=== PATIENT | female | born 1995 | race Caucasian/White ===

== ENCOUNTER 2018-07-22 22:47 | Inpatient (IN) ==
[2018-07-22] MEDS ORDERED: BUTORPHANOL 2 MG/ML VIAL IV PRN (23:03)
[2018-07-22] MEDS ORDERED: MEPERIDINE 50 MG/1 ML VIAL IV PRN (23:03)
[2018-07-22 23:24] LABS: Basophils % 0.2 % (0.0-0.8); Eosinophils # 0.1 10*3/uL (0.0-0.87); Eosinophils % 0.8 % (0.00-10.9); Hematocrit 29.4 VOL% (35.7-47.0); Hemoglobin 8.7 GM/DL (12.0-16.0); Immature Granulocytes % 1.9 %; Immature Granulocytes Absolute 0.23 #; Lymphocytes # 2.5 10*3/uL (1.4-4.0); Lymphocytes % 20.7 % (21.3-54.2); Mean Corpuscular HGB Conc 29.6 GM/DL (32-36); Mean Corpuscular Hemoglobin 23 PG (27-34); Mean Platelet Volume 9.9 FL (9.6-12.0); Monocytes # 0.6 10*3/uL (0.11-0.8); Monocytes % 5.2 % (1.7-12.7); NRBC # 0.02 10*3/uL; Neutrophils # 8.7 10*3/uL (1.4-7.4); Neutrophils % 71.2 % (38.7-73.9); Platelet Count 334 T/CUMM (130-400); Red Blood Count 3.77 MC/CUMM (3.8-5.5); Red Cell Distribution Width 18.6 % (9.3-17.3); White Blood Count 12.3 T/CUMM (4-12)
[2018-07-22] MEDS ORDERED: LACTATED RINGERS 1,000 ML IV SCH (23:30)
[2018-07-22] MEDS ORDERED: ZALEPLON 5 MG CAPSULE PO ONE (23:39)
[2018-07-22 23:46] LABS: Alanine Aminotransferase 13 U/L (13-56); Albumin 2.6 G/DL (3.4-5.0); Alkaline Phosphatase 193 U/L (45-117); Aspartate Amino Transferase 9 U/L (0-37); Bilirubin,Total < 0.39 MG/DL (0.2-1.0); Blood Urea Nitrogen 11 MG/DL (7-18); Calcium 8.8 MG/DL (8.5-10.1); Glucose 114 MG/DL (74-106); Osmolality,Calculated 272.8 MOS/KG (273-304); Potassium 3.6 MMOL/L (3.5-5.1); Sodium 137 MMOL/L (136-145); Total Protein 7.2 G/DL (6.4-8.3)
[2018-07-23] MEDS: ONDANSETRON 4 MG/2 ML VIAL IV PRN (04:25)
[2018-07-23] MEDS ORDERED: FAMOTIDINE 20 MG/2 ML VIAL IV ONE (04:51)
[2018-07-23] MEDS ORDERED: diphenhydrAMINE 50 MG/1 ML VIAL IV PRN ×2 (04:51)
[2018-07-23] MEDS ORDERED: CITRIC ACID/SODIUM CITRATE 30 ML UDCUP PO ONE (04:51)
[2018-07-23] MEDS ORDERED: hydrOXYzine HCL 25 MG/1 ML VIAL IM PRN (04:51)
[2018-07-23] MEDS ORDERED: ePHEDrine 50 MG/ML AMP IV PRN (04:51)
[2018-07-23] MEDS ORDERED: LACTATED RINGERS 1,000 ML IV ONE (04:51)
[2018-07-23] MEDS ORDERED: PROMETHAZINE 25 MG/1 ML VIAL IM ONE (04:51)
[2018-07-23] MEDS ORDERED: NALOXONE 0.4 MG/ML VIAL IV PRN (04:51)
[2018-07-23] MEDS ORDERED: fentaNYL 2 MCG/ROPIV 0.2% EPID 100 ML EPIDURAL SCH (05:00)
[2018-07-23] MEDS ORDERED: OXYTOCIN/LR 20 UNIT/1,000 ML BAG IV ONE ×3 (06:06→06:36)
[2018-07-23] MEDS ORDERED: METHYLERGONOVINE 0.2 MG/1 ML AMP ONE (06:06)
[2018-07-23] MEDS ORDERED: miSOPROStol 200 MCG TABLET ONE (06:06)
[2018-07-23] MEDS ORDERED: DIPH/TET/ACEL PERT BOOSTER VACCINE 0.5 ML VIAL IM ONE (06:36)
[2018-07-23] MEDS ORDERED: oxyCODONE/ACETAMINOPHEN 5-325 MG TABLET PO PRN (06:36)
[2018-07-23] MEDS ORDERED: LANOLIN 50% CREAM 0.3 OZ TUBE TOP PRN (06:36)
[2018-07-23] MEDS ORDERED: BENZOCAINE 20%/MENTHOL 0.5% SPRAY 56 GM CAN TOP PRN (06:36)
[2018-07-23] MEDS ORDERED: HYDROCORTISONE 2.5% RECTAL CREAM 30 GM TUBE TOP PRN (06:36)
[2018-07-23] MEDS ORDERED: MEASLES/MUMPS/RUBELLA VACCINE 0.5 ML VIAL SUBCUT ONE (06:36)
[2018-07-23] MEDS ORDERED: ACETAMINOPHEN 325 MG TABLET PO PRN (06:36)
[2018-07-23] MEDS ORDERED: WITCH HAZEL PADS 100/JAR TOP PRN (06:36)
[2018-07-23] MEDS ORDERED: RHO(D) IMMUNE GLOBULIN 300 MCG SYRINGE IM ONE (06:36)
[2018-07-23] MEDS ORDERED: ONDANSETRON 4 MG/2 ML VIAL IV PRN (06:36)
[2018-07-23] MEDS ORDERED: BISACODYL 10 MG SUPP RECTAL PRN (06:36)
[2018-07-23] MEDS ORDERED: ONDANSETRON 4 MG/2 ML VIAL IV ONE (07:23)
[2018-07-23] MEDS ORDERED: OXYTOCIN/LR 20 UNIT/1,000 ML BAG IV SCH (08:00)
[2018-07-23 11:44] LABS: Barbiturates Screen,Urine Negative (Negative); Benzodiazepines Screen,Urine Negative (Negative); Cannabinoid Screen,Urine Positive (Negative); Opiate Screen,Urine Negative (Negative); Phencyclidine Screen,Urine Negative (Negative)
[2018-07-23] MEDS: DOCUSATE SODIUM 100 MG CAPSULE PO SCH ×2 (17:14→21:56)
[2018-07-23 19:57] LABS: Hematocrit 24.6 VOL% (35.7-47.0); Hemoglobin 7.4 GM/DL (12.0-16.0)
[2018-07-23] MEDS ORDERED: MAGNESIUM SULF RIDER 100 ML IV ONE (20:38)
[2018-07-23] MEDS: LACTATED RINGERS 1,000 ML IV SCH (21:05)
[2018-07-23] MEDS ORDERED: LORazepam 1 MG TABLET PO PRN (21:38)
[2018-07-23] MEDS ORDERED: hydrALAZINE 20 MG/1 ML VIAL IV PRN (21:43)
[2018-07-23] MEDS: MAGNESIUM SULF DRIP 40 GM/1,000 ML ML IV SCH (21:48)
[2018-07-23] MEDS: hydroCHLOROthiazide 25 MG TABLET PO SCH (21:56)
[2018-07-24 01:02] LABS: Apearance,Urine CLEAR (Clear); Bacteria,Urine Occasional /HPF (Few); Bilirubin,Urine Negative (Negative); Blood, Urine Negative (Negative); Glucose,Urine (UA) Negative (Negative); Ketones,Urine Negative (Negative); Mucus,Urine Occasional /LPF (Occasional); Nitrite,Urine Negative (Negative); Protein,Urine Negative; RBC,Urine <1 /HPF (0-4); Urine Color Colorless (Yellow); Urine Specific Gravity 1.005 (1.001-1.035); Urine Urobilinogen < 2.0 EU/DL (0.2-1.0); WBC,Urine 1 /HPF (0-6)
[2018-07-24] MEDS ORDERED: LORazepam 2 MG/1 ML VIAL IV PRN (02:41)
[2018-07-24] MEDS: oxyCODONE/ACETAMINOPHEN 5-325 MG TABLET PO PRN ×4 (07:52→22:37)
[2018-07-24] MEDS: DOCUSATE SODIUM 100 MG CAPSULE PO SCH ×2 (09:04→22:37)
[2018-07-24] MEDS: hydroCHLOROthiazide 25 MG TABLET PO SCH (09:04)
[2018-07-24] MEDS: FERROUS SULFATE 325 MG TABLET PO SCH ×2 (09:04→22:37)
[2018-07-24] MEDS: hydrALAZINE 20 MG/1 ML VIAL IV PRN ×2 (15:59→22:25)
[2018-07-24] MEDS: ONDANSETRON 4 MG/2 ML VIAL IV PRN (20:50)
[2018-07-24] MEDS ORDERED: oxyCODONE/ACETAMINOPHEN 5-325 MG TABLET PO PRN (22:30)
[2018-07-25] MEDS: DOCUSATE SODIUM 100 MG CAPSULE PO SCH ×2 (09:00→21:03)
[2018-07-25] MEDS: LABETALOL 200 MG TABLET PO SCH ×2 (09:00→21:04)
[2018-07-25] MEDS: FERROUS SULFATE 325 MG TABLET PO SCH ×2 (09:00→21:03)
[2018-07-25] MEDS: hydroCHLOROthiazide 25 MG TABLET PO SCH (09:00)
[2018-07-25] MEDS: oxyCODONE/ACETAMINOPHEN 5-325 MG TABLET PO PRN (12:39)
[2018-07-25] MEDS: IBUPROFEN 800 MG TABLET PO PRN ×2 (15:25→23:06)
[2018-07-25] MEDS: LACTATED RINGERS 1,000 ML IV SCH ×2 (19:55→19:57)
[2018-07-25] MEDS: MAGNESIUM SULF DRIP 40 GM/1,000 ML ML IV SCH ×2 (19:57→21:55)
[2018-07-26 07:14] VITALS: BP 134/80
[2018-07-26] MEDS: LABETALOL 200 MG TABLET PO SCH (09:50)
[2018-07-26] MEDS: hydroCHLOROthiazide 25 MG TABLET PO SCH (09:50)
[2018-07-26] MEDS: FERROUS SULFATE 325 MG TABLET PO SCH (09:51)
[2018-07-26] MEDS: DOCUSATE SODIUM 100 MG CAPSULE PO SCH (09:51)
== END 2018-07-26 11:45 | disposition home or self-care (01) | DRG 560 ==
LOC: N.LDOUT 22:47 → N.LD 22:51 → N.OB 07-23 07:43
PROVIDERS: ADMIT Specialist; ATTEND Specialist